=== PATIENT | male | born 1960 | race Caucasian/White ===

== ENCOUNTER 2024-01-22 13:55 | Outpatient (AMB) | payer MEDICARE, SELFPAY ==
--- NOTE | 2024-01-22 14:19 | A.SPINEOV_ITS ---
Intake Intake Visit Reasons: Low back pain Intake Note: Mr. Randall is here today c/o Low back pain. Assistant Dean [employer] Required: No Allergies No Known Allergies Allergy (Verified 01/22/24 14:21) Assessment & Plan Assessment & Plan (1) Peripheral neuropathy: Code(s): G62.9 - Polyneuropathy, unspecified Plan Dear dear colleague Thank you for referring Constantine Randall to the office today with a chief complaint of left leg weakness. HPI: This 63-year-old male is complaining of her progressive weakness of his legs since 2018. It started with tripping due to a foot drop. An EFO improved does symptoms. An MRI of the lumbar spine was done send year ago and he was told that is spinal stenosis and needed surgery or physical therapy. On further questioning, he states that he has balance problems and that he would not pass the sobriety test and not because he was drinking. He fell and broke his right leg. He has to hold himself in the shower. He can not walk with his eyes closed otherwise he will fall. He denies numbness. His upper extremities are intact. He comes to see me for possible surgical decompression PMH: Hypertension, obesity, right leg fracture Medications: Lisinopril, Flomax Allergies: None Social history: , nonsmoker Physical Exam: Pleasant male. Cranial nerves 2-12 are intact. Upper extremities show no signs of motor weakness sensory deficits. He ambulates with a Trendelenburg bilaterally. Romberg is positive. Toe to heel test is positive. There areflexia. No pathological reflexes. There is proximal leg weakness with the left side more affected than the right side and a mild left foot drop. Radiological Studies: MRI done at [facility] shows mild degenerative changes with mild central canal stenosis. Impression/Plan: This 63-year-old male is suffering from progressive bilateral leg weakness where the left side is more affected than the right side and loss of proprioceptive with balance problems. Differential diagnosis is polyneuropathy or another disease causing peripheral nerve disease. He has definitely not suffering from lumbar spinal stenosis. I referred him to Dr. Dean neurologist for further workup, which should include at least an EMG. Thank you for allowing me to participate in your patients care. total time spent was 60 minutes in counseling ,coordination of plan, personal review of imaging, and subsequent plan Pérez Morales MD, PhD [facility] Trained Neurosurgeon Director, [facility] Orders: Referrals Neurology Referral G62.9 - Polyneuropathy, unspecified Coding Level of Care Code New Pt Level 5 (76260) Diagnoses Peripheral neuropathy G62.9
== END 2024-01-22 14:59 | disposition home or self-care (01) ==
PROVIDERS: Visit Provider Neurological Surgery
DX: G62.9 Polyneuropathy, unspecified (principal)
CPT/HCPCS: 99205

== ENCOUNTER → 2024-01-22 13:55 | Outpatient (BNVA) | payer MEDICARE, SELFPAY | PROVIDERS: Visit Provider Neurological Surgery | DX: G62.9 Polyneuropathy, unspecified (principal) | CPT/HCPCS: 99202 ==